=== PATIENT | male | born 1945 | race African-American/Black ===

== ENCOUNTER → 2016-09-03 | Outpatient (CLI) | payer MEDICARE, MEDICAID ==
[~2016-09-03] VITALS: Ht 175.3 cm; Wt 61.0 kg
[~2016-09-03] MED LIST: BENA20 PO; CARI250T; DIOVAN PO; HYDR-3971 PO; OXYC30TA86 PO
[2016-09-03 09:45] VITALS: BP 159/104
== END | disposition home or self-care (01) ==
LOC: SRCNTR 09:28
PROVIDERS: ATTEND Hospitalist
DX: I10 Essential (primary) hypertension (principal); G89.29 Other chronic pain
CPT/HCPCS: G0463